=== PATIENT | female | born 1950 | race African-American/Black ===

== ENCOUNTER 2017-09-27 11:05 | Emergency (ER) | payer MEDICARE, MEDICAID ==
[~2017-09-27] VITALS: Ht 162.6 cm; Wt 79.4 kg
--- NOTE | 2017-09-27 11:14 | NUR ---
Pt placed in room.Remains awake,alert.Denies pain,discomfort.No s/s of hypoglycemia noted. Awaiting to be seen by MD.
--- NOTE | 2017-09-27 11:24 | NUR ---
Seen,examined by .
[2017-09-27] MEDS ORDERED: HYDR12.519 PO (11:25)
[2017-09-27] MEDS ORDERED: INSULIN DEGLUDEC (11:25)
[2017-09-27] MEDS ORDERED: INSU100I14 SQ (11:25)
[2017-09-27] MEDS ORDERED: [UNRECOGNIZED DRUG - REMARK] (11:25)
[2017-09-27] MEDS ORDERED: BENA20TA78 PO (11:25)
--- NOTE | 2017-09-27 11:33 | NUR ---
Blood sugar is 74.Patient provided with food.
--- NOTE | 2017-09-27 11:45 | NUR ---
Pt is doing well.Denies pain,discomfort.Denies s/s of hypoglycemia.Seen by [employer] regarding her car. Discharge instruction was given to patient.Patient verbalized understanding.
[2017-09-27 12:12] VITALS: BP 160/88
== END 2017-09-27 12:14 | disposition home or self-care (01) ==
LOC: ER 11:06
DX: E11.649 Type 2 diabetes mellitus with hypoglycemia without coma (principal); I10 Essential (primary) hypertension; Z79.4 Long term (current) use of insulin; Z85.3 Personal history of malignant neoplasm of breast
CPT/HCPCS: 82962; 99283; A4663